=== PATIENT | female | born 1935 | race Caucasian/White ===

== ENCOUNTER 2017-01-22 09:17 | Emergency (ER) | payer OTHER ==
[~2017-01-22 09:17] MED LIST: CARBIDOPA/LEVOD1 TA4 PO; ESCITALOPRAM OXA5 MG PO; FERROUS SULFAT324 M1 PO; LIPITOR80 MG PO; PLAVIX75 MG PO
--- NOTE | 2017-01-22 11:34 | ED NURSING NOTES ---
Clinical Report - Nurses [facility] [address] [place] [address] 01/22/2017 9:18 Patient: PHONG ADEN TRIAGE Triage time 09:33. Acuity: LEVEL 3. Chief Complaint: WEAKNESS. Alert. LAUREN COMA SCORE: [place] Coma Scale: 15- eyes open spontaneously (4); best verbal response- oriented x 4 (5); best motor response- obeys commands (6). --09:38 Vane Rudolph R.N. 09:33 01/22/17. BP: 126/65. HR: 81. RR: 16. O2 saturation: 100% on room air. Temp: 97.7 F (oral). Pain level now: 0/10. --09:38 Vane Rudolph R.N. Weight: 50.3 kg stated. Height/Length: 66 inches Per Patient. BMI: 17.9. --09:36 Vane Rudolph R.N. Medications Carbidopa-Levodopa Oral 25/100 mg, 3x a day. Clopidogrel Bisulfate Oral 75 mg, daily. Escitalopram Oxalate Oral 10 mg, daily. --09:35 Vane Rudolph R.N. Medication/allergy information source: the patient's family. --09:38 Vane Rudolph R.N. Allergies No Known Drug Allergy. --09:35 Vane Rudolph R.N. History Arrived by private vehicle. Historian: patient and family. Accompanied by family. Primary physician ([facility]). This started last night. ( daughter states pt was very tired last night, got up this morning and just didn't feel right, pt c/o confusion). SOCIAL HX: Smoker- current status unknown (no). No alcohol use or drug use. LEARNING NEEDS ASSESSMENT: The learning needs assessment revealed no barriers. FALL RISK ASSESSMENT: Fall risk assessment completed. Risk factors identified include patient age greater than 65 years and impairment of mobility. Fall interventions initiated. Patient placed on stretcher. Side rails up x1. Brakes on Bed in low position. Family at bedside. FUNCTIONAL ASSESSMENT: Functional assessment performed: requires assistance with the activities of daily living; mobility impairment present- this mobility impairment is an ongoing problem. --09:38 Vane Rudolph R.N. PROBLEMS: Anemia. Renal Failure. Hypotension. Diarrhea. CVA - Cerebrovascular Accident. Strokes x 3. Nephropathy. --09:36 Vane Rudolph R.N. TIA - Transient Ischemic Attack [RuleOut]. Changed Mental Status [RuleOut]. --09:36 Vane Rudolph R.N. ADDITIONAL SURGERIES: Cabg x 2. --09:36 Vane Rudolph R.N. Assessment GENERAL / NEURO / PSYCH: Alert. Appears in no acute distress. Patient appears calm and cooperative. ( oriented to person). RESPIRATORY: Respirations not labored. SKIN: Skin is warm and dry. --09:38 Vane Rudolph R.N. Interventions ID band on patient. To treatment room. --09:38 Vane Rudolph R.N. PHYSICAL ASSESSMENT 09:35. To room via wheelchair. Patient gowned. GENERAL / NEURO / PSYCH: Awake. Alert. Appears in no acute distress. Speech normal. RESPIRATORY: Respirations not labored. CVS: Cardiac rhythm: sinus rhythm. SKIN: Skin is warm and dry. --10:26 Vane Rudolph R.N. NURSING PROGRESS NOTES 10:01/22/2017 Site #1 started via IV in the right upper arm with an 22g angiocath, with aseptic technique and good blood return; two attempts. Blood drawn: rainbow set. Labeled in the presence of the patient and sent to the lab. Saline lock flushed with 10 mL saline. --10:09 Vane Rudolph R.N. EKG time: (9:49 AM). EKG was performed by a tech and shown to the ED physician. --10:19 Zane Buck 09:35. hyperbaric nurse, pulse oximeter and NIBP monitor placed on patient. Patient gowned. Head of bed elevated. Call light placed in reach. Side rails up x 2. Bed placed in lowest position. Brakes of bed on. --10:27 Vane Rudolph R.N. 10:27 01/22/17. Patient ID band checked. Catheterized urine collected; sample sent to lab. Specimen labeled in the presence of the patient (with femcath kit and assist of EDT). --10:27 Vane Rudolph R.N. 11:21 01/22/2017 Started 1 gm of Ceftriaxone IVPB in bag #1 50 mL; at 200 mL/hr over 30 minute(s) via site #1; Allergies verified and confirmed 5 rights. IV patency established. IV site checked: no pain, redness, or swelling. IV flushed thoroughly pre- and post-medication administration. Completed per protocol. --11:21 Charbel Pace R.N. DISPOSITION / DISCHARGE 11:43 01/22/17. BP: 114/71. HR: 66. RR: 18. O2 saturation: 98%. Temp: 98.5 F. Pain level now 0/10. --11:44 Charbel Pace R.N. No learning barriers present. Discharge instructions provided and reviewed with the patient. Reviewed warnings. Reviewed medication(s). Treatments reviewed. Reviewed referrals. Patient verbalized understanding. Written instructions provided in Turkish. --11:46 Charbel Pace R.N. The patient was discharged by the physician. She was discharged home and accompanied by family. She left the Emergency Department in a wheelchair and via private vehicle. Family member driving. --11:47 Charbel Pace R.N. Departure time: 1150. --11:47 Charbel Pace R.N. Locked/Released at 01/22/2017 14:06 by Charbel Pace R.N.
--- NOTE | 2017-01-22 11:34 | ED CLINICAL REPORT ---
Clinical Report - Physicians/Mid Levels [facility] [address] [place] [address] 01/22/2017 9:18 Patient: PHONG ADEN Time Seen: 09:35; initial patient contact. Arrived- By private vehicle. Historian- patient and family. HISTORY OF PRESENT ILLNESS Chief Complaint: WEAKNESS. The patient has had weakness. No numbness, tingling, impaired speech or swallowing or visual disturbance. No recent fall. No difficulty walking. This started yesterday, patient was last known well (yesterday) and is still present (persistent). It was gradual in onset. At its maximum deficit described as mild. When seen in the E.D., deficit described as mild. No dizziness, seizure or blackouts. She has had altered mental status (Mild). She is described as having decreased responsiveness and has had trouble concentrating. Usually is alert and oriented X3 and has normal mobility. Similar symptoms previously: None. Recent medical care: Not recently seen/assessed. REVIEW OF SYSTEMS No fever, headache, head injury, chest pain or difficulty breathing. All systems otherwise negative, except as recorded above. PAST HISTORY ( Anemia. Renal Failure. Hypotension. Diarrhea. CVA - Cerebrovascular Accident. Strokes x 3. Nephropathy. TIA - Transient Ischemic Attack Changed Mental Status SURGERIES: Cabg x 2.). SOCIAL HISTORY Never smoker. No alcohol use or drug use. ADDITIONAL NOTES The nursing notes have been reviewed with agreement regarding the chief complaint, PMH and patient medications and allergies. PHYSICAL EXAM Vital Signs: 01/22/2017 09:33 BP: 126/65. HR: 81. RR: 16. O2 saturation: 100%. Temp: 97.7 F. Pain level now: 0/10. Have been reviewed as normal. Appearance: Alert. No acute distress. Head: Head atraumatic. Eyes: Pupils equal, round and reactive to light. ENT: Airway intact. Pharynx normal. Neck: Normal inspection. CVS: Normal heart rate and rhythm. Heart sounds normal. Respiratory: No respiratory distress. Breath sounds normal. Back: Normal inspection. No CVA tenderness. Skin: Skin warm and dry. Normal skin color. No rash. Extremities: No lower extremity edema. Neuro: Alert. Oriented X 3. Mood/affect normal. Speech normal. Cranial nerves normal (as tested). No cerebellar findings. No motor deficit. No sensory deficit. Reflexes normal. LABS, X-RAYS, AND EKG Laboratory Tests: UA-Culture if indicated: (KIRSTIE: 01/22/2017 10:20) ( [facility] 01/22/2017 10:42) Final results Test Result Flag Units (Reference) URINE COLOR YELLOW URINE APPEARANCE SL CLOUDY URINE GLUCOSE NEGATIVE (NEGATIVE) URINE BILIRUBIN NEGATIVE (NEGATIVE) URINE KETONE NEGATIVE (NEGATIVE) URINE SPECIFIC GRAVITY 1.020 (1.010-1.030) URINE PH 5.5 (5.0-8.0) URINE PROTEIN NEGATIVE (NEGATIVE) URINE UROBILINOGEN 0.2 EU/dL (0.2-1.0) URINE NITRITE POSITIVE (NEGATIVE) URINE BLOOD 2+ (NEGATIVE) URINE LEUK ESTERASE NEGATIVE (NEGATIVE) URINE RBC 3-5 rbc/hpf (0-1) URINE WBC NONE SEEN wbc/hpf (0-1) URINE EPITHELIAL CELLS RARE EPI/hpf (0-5) URINE BACTERIA MANY (4+) (NONE SEEN) URINE COMMENT CULTURE INDICATED URINE CULTURES ARE SET-UP BASED ON THE FOLLOWING CRITERIA:POSITIVE NITRITEPOSITIVE LEUKOCYTE ESTERASEGREATER THAN 10 WHITE BLOOD CELLSMODERATE (2+) OR GREATER BACTERIA CBC w Diff: (KIRSTIE: 01/22/2017 10:00) ( [facility] 01/22/2017 10:16) Final results Test Result Flag Units (Reference) WHITE BLOOD COUNT 6.2 K/uL (4.5-11.5) RED BLOOD COUNT 3.45 L M/uL (4.00-5.20) HEMOGLOBIN 10.2 L gm/dL (12.0-16.0) HEMATOCRIT 30.7 L % (36.0-46.0) MEAN CELL VOLUME 89 fL (80-100) MEAN CORPUSCULAR HGB 30 pg (26-34) MEAN CORPUSCULAR HGB CONC 33 g/dL (31-37) RED CELL DISTRIBUTION WIDTH 13.5 % (11.6-14.8) PLATELET COUNT 211 K/uL (150-400) NEUTROPHIL % 65.5 % (50-75) LYMPH % 24.1 L % (25-40) MONO % 7.9 % (3-14) EOSINOPHIL % 2.1 % (0-4) BASOPHIL % 0.4 % (0-2) Urine Drug Screen: (KIRSTIE: 01/22/2017 10:20) ( [facility] 01/22/2017 10:48) Final results Test Result Flag Units (Reference) AMPHETAMINE/METHAMPHETAMINE NEGATIVE (NEGATIVE) BARBITURATE NEGATIVE (NEGATIVE) BENZODIAZEPINE NEGATIVE (NEGATIVE) CANNABINOID NEGATIVE (NEGATIVE) COCAINE NEGATIVE (NEGATIVE) ECSTASY NEGATIVE (NEGATIVE) METHADONE NEGATIVE (NEGATIVE) OPIATE NEGATIVE (NEGATIVE) The urine drug screen is a qualitative screening test fordrug overdose and abuse. All screen results should beconsidered as presumptive.Drugs screened for are as follows:BenzodiazepinesCocaineAmphetamines/MetamphetaminesTHC (Tetrahydrocannabinol)OpiatesBarbituratesEcstasyMethadonePositive results are unconfirmed. For confirmation, notifythe lab for the specimen to be sent to the reference lab.All confirmations must be performed by a differentmethodology.The ingestion of natural herbal and plant productscontaining Ephedra/Ephedra metabolites can produce in urineone or more substances capable of cross reacting withamphetamine/methamphetamine immunoassays. These testsprovide a preliminary result only. A more specificalternative chemical method must be used to obtain aconfirmed analytical result. CMP: (KIRSTIE: 01/22/2017 10:00) ( [facility] 01/22/2017 10:29) Final results Test Result Flag Units (Reference) GLUCOSE 147 H mg/dL (70-110) BUN 31 H mg/dL (7-18) CREATININE 1.5 H mg/dL (0.6-1.3) Estimated GFR 35.25 mL/min Estimated GFR- 42.72 mL/min Note: Persistent reduction over 3 months in eGFR<60 mL/min/1.73 m2 defines CKD. Patients with eGFR values>=60 mL/min/1.73 m2 may also have CKD if evidence ofpersistent proteinuria. Additional information may be foundat www.kidney.org. SODIUM 145 mmol/L (136-145) POTASSIUM 3.6 mmol/L (3.5-5.1) CHLORIDE 108 H mmol/L (98-107) CARBON DIOXIDE 28 mmol/L (21-32) CALCIUM 8.5 mg/dL (8.5-10.1) TOTAL PROTEIN 6.6 g/dL (6.4-8.2) ALBUMIN 3.1 L g/dL (3.3-5.0) BILIRUBIN, TOTAL 0.5 mg/dL (0.0-1.0) ALKALINE PHOSPHATASE 48 U/L (46-116) AST (SGOT) 17 U/L (15-37) ALT (SGPT) 10 L U/L (12-78) . PROGRESS AND PROCEDURES Disposition: Discharged home in good condition. Condition: good. CLINICAL IMPRESSION Acute urinary tract infection with cystitis. No pyelonephritis. INSTRUCTIONS Your Current Medications: CONTINUE TAKING THE FOLLOWING MEDICATIONS: Carbidopa-Levodopa Oral : 25/100 mg 3x a day. Clopidogrel Bisulfate Oral : 75 mg daily. Escitalopram Oxalate Oral : 10 mg daily. Prescription Medications: Cipro 500 mg: take 1 tab orally every 12 hours for 3 days. No refills. Substitution is permissible. Follow-up: Follow up with your doctor in about two days. Call for an appointment. Screening today revealed the patient's blood pressure to be in the pre-hypertensive range. The patient should follow up with a primary care provider for blood pressure management. (Electronically signed by Cr Shultz Dr. 01/22/2017 11:37)
--- NOTE | 2017-01-22 11:34 | ED NURSING NOTES ---
Clinical Report - Nurses [facility] [address] [place] [address] 01/22/2017 9:18 Patient: PHONG ADEN TRIAGE Triage time 09:33. Acuity: LEVEL 3. Chief Complaint: WEAKNESS. Alert. LAUREN COMA SCORE: [place] Coma Scale: 15- eyes open spontaneously (4); best verbal response- oriented x 4 (5); best motor response- obeys commands (6). --09:38 Vane Rudolph R.N. 09:33 01/22/17. BP: 126/65. HR: 81. RR: 16. O2 saturation: 100% on room air. Temp: 97.7 F (oral). Pain level now: 0/10. --09:38 Vane Rudolph R.N. Weight: 50.3 kg stated. Height/Length: 66 inches Per Patient. BMI: 17.9. --09:36 Vane Rudolph R.N. Medications Carbidopa-Levodopa Oral 25/100 mg, 3x a day. Clopidogrel Bisulfate Oral 75 mg, daily. Escitalopram Oxalate Oral 10 mg, daily. --09:35 Vane Rudolph R.N. Medication/allergy information source: the patient's family. --09:38 Vane Rudolph R.N. Allergies No Known Drug Allergy. --09:35 Vane Rudolph R.N. History Arrived by private vehicle. Historian: patient and family. Accompanied by family. Primary physician ([facility]). This started last night. ( daughter states pt was very tired last night, got up this morning and just didn't feel right, pt c/o confusion). SOCIAL HX: Smoker- current status unknown (no). No alcohol use or drug use. LEARNING NEEDS ASSESSMENT: The learning needs assessment revealed no barriers. FALL RISK ASSESSMENT: Fall risk assessment completed. Risk factors identified include patient age greater than 65 years and impairment of mobility. Fall interventions initiated. Patient placed on stretcher. Side rails up x1. Brakes on Bed in low position. Family at bedside. FUNCTIONAL ASSESSMENT: Functional assessment performed: requires assistance with the activities of daily living; mobility impairment present- this mobility impairment is an ongoing problem. --09:38 Vane Rudolph R.N. PROBLEMS: Anemia. Renal Failure. Hypotension. Diarrhea. CVA - Cerebrovascular Accident. Strokes x 3. Nephropathy. --09:36 Vane Rudolph R.N. TIA - Transient Ischemic Attack [RuleOut]. Changed Mental Status [RuleOut]. --09:36 Vane Rudolph R.N. ADDITIONAL SURGERIES: Cabg x 2. --09:36 Vane Rudolph R.N. Assessment GENERAL / NEURO / PSYCH: Alert. Appears in no acute distress. Patient appears calm and cooperative. ( oriented to person). RESPIRATORY: Respirations not labored. SKIN: Skin is warm and dry. --09:38 Vane Rudolph R.N. Interventions ID band on patient. To treatment room. --09:38 Vane Rudolph R.N. PHYSICAL ASSESSMENT 09:35. To room via wheelchair. Patient gowned. GENERAL / NEURO / PSYCH: Awake. Alert. Appears in no acute distress. Speech normal. RESPIRATORY: Respirations not labored. CVS: Cardiac rhythm: sinus rhythm. SKIN: Skin is warm and dry. --10:26 Vane Rudolph R.N. NURSING PROGRESS NOTES 10:01/22/2017 Site #1 started via IV in the right upper arm with an 22g angiocath, with aseptic technique and good blood return; two attempts. Blood drawn: rainbow set. Labeled in the presence of the patient and sent to the lab. Saline lock flushed with 10 mL saline. --10:09 Vane Rudolph R.N. EKG time: (9:49 AM). EKG was performed by a tech and shown to the ED physician. --10:19 Zane Buck 09:35. teletype operator, pulse oximeter and NIBP monitor placed on patient. Patient gowned. Head of bed elevated. Call light placed in reach. Side rails up x 2. Bed placed in lowest position. Brakes of bed on. --10:27 Vane Rudolph R.N. 10:27 01/22/17. Patient ID band checked. Catheterized urine collected; sample sent to lab. Specimen labeled in the presence of the patient (with femcath kit and assist of EDT). --10:27 Vane Rudolph R.N. 11:21 01/22/2017 Started 1 gm of Ceftriaxone IVPB in bag #1 50 mL; at 200 mL/hr over 30 minute(s) via site #1; Allergies verified and confirmed 5 rights. IV patency established. IV site checked: no pain, redness, or swelling. IV flushed thoroughly pre- and post-medication administration. Completed per protocol. --11:21 Charbel Pace R.N. DISPOSITION / DISCHARGE 11:43 01/22/17. BP: 114/71. HR: 66. RR: 18. O2 saturation: 98%. Temp: 98.5 F. Pain level now 0/10. --11:44 Charbel Pace R.N. No learning barriers present. Discharge instructions provided and reviewed with the patient. Reviewed warnings. Reviewed medication(s). Treatments reviewed. Reviewed referrals. Patient verbalized understanding. Written instructions provided in Moldovan. --11:46 Charbel Pace R.N. The patient was discharged by the physician. She was discharged home and accompanied by family. She left the Emergency Department in a wheelchair and via private vehicle. Family member driving. --11:47 Charbel Pace R.N. Departure time: 1150. --11:47 Charbel Pace R.N. Locked/Released at 01/22/2017 14:06 by Charbel Pace R.N.
--- NOTE | 2017-01-22 11:35 | ED ORDER SUMMARY ---
..... Patient: PHONG ADEN OrderSheet [facility] VisitID: [id number] [address] [place] [address] 81y, F Registration Date/Time: 01/22/2017 ORDER SHEET Weight: 50.3 kg (stated) Allergies: No Known Drug Allergy GENERAL ORDERS: CBC w Diff Urgent (09:54 01/22/2017 Avis Padgett) (Ack 10:03 Ping) (10:09 [place] R.N.) CMP Urgent (:01/22/2017 Avis Padgett) (Ack 10:03 Ping) (10:09 [place] R.N.) UA-Culture if indicated Urgent (01/22/2017 Avis Padgett) (Ack 10:03 Ping) (11:18 [place] R.N.) Urine Drug Screen Urgent (:01/22/2017 Avis Padgett) (Ack 10:03 Ping) (11:18 [place] R.N.) MEDICATION ORDERS: IV FLUIDS: IV Saline Lock (:01/22/2017 Avis Padgett) (10:09 [place] R.N.) Ceftriaxone IV 1 gm/50mL (NOW) (11:01 01/22/2017 Avis Padgett) (11:21 Delores Barrett.Tom) ORDER SHEET NOTES: [Electronically signed by Cr Shultz Dr. (11:37 01/22/2017)] [Electronically signed by Charbel Pace R.N. (14:06 01/22/2017)] [Electronically locked/signed by Charbel Pace R.N. (14:06 01/22/2017)]
--- NOTE | 2017-01-22 11:35 | ED ORDER SUMMARY ---
..... Patient: PHONG ADEN OrderSheet [facility] VisitID: [id number] [address] [place] [address] 81y, F Registration Date/Time: 01/22/2017 ORDER SHEET Weight: 50.3 kg (stated) Allergies: No Known Drug Allergy GENERAL ORDERS: CBC w Diff Urgent (09:54 01/22/2017 Avis Padgett) (Ack 10:03 Ping) (10:09 [place] R.N.) CMP Urgent (:01/22/2017 Avis Padgett) (Ack 10:03 Ping) (10:09 [place] R.N.) UA-Culture if indicated Urgent (01/22/2017 Avis Padgett) (Ack 10:03 Ping) (11:18 [place] R.N.) Urine Drug Screen Urgent (:01/22/2017 Avis Padgett) (Ack 10:03 Ping) (11:18 [place] R.N.) MEDICATION ORDERS: IV FLUIDS: IV Saline Lock (:01/22/2017 Avis Padgett) (10:09 [place] R.N.) Ceftriaxone IV 1 gm/50mL (NOW) (11:01 01/22/2017 Avis Padgett) (11:21 Delores Barrett.Tom) ORDER SHEET NOTES: [Electronically signed by Cr Shultz Dr. (11:37 01/22/2017)] [Electronically signed by Charbel Pace R.N. (14:06 01/22/2017)] [Electronically locked/signed by Charbel Pace R.N. (14:06 01/22/2017)]
--- NOTE | 2017-01-22 14:06 | ED DISCHARGE INSTRUCTIONS ---
Patient: PHONG ADEN General Instructions [facility] VisitID: [id number] [place] [address] 81y, F Registration Date/Time: 01/22/2017 Acute urinary tract infection with cystitis. No pyelonephritis. INSTRUCTIONS Your Current Medications: CONTINUE TAKING THE FOLLOWING MEDICATIONS: Carbidopa-Levodopa Oral : 25/100 mg 3x a day. Clopidogrel Bisulfate Oral : 75 mg daily. Escitalopram Oxalate Oral : 10 mg daily. Prescription Medications: Cipro 500 mg: take 1 tab orally every 12 hours for 3 days. No refills. Substitution is permissible. Follow-up: Follow up with your doctor in about two days. Call for an appointment. Screening today revealed the patient's blood pressure to be in the pre-hypertensive range. The patient should follow up with a primary care provider for blood pressure management. ADDITIONAL INFORMATION Bladder Infection,Female (Adult) A bladder infection ("cystitis" or "UTI") usually causes a constant urge to urinate and a burning when passing urine. Urine may be cloudy, smelly or dark. There may be pain in the lower abdomen. A bladder infection occurs when bacteria from the vaginal area enter the bladder opening (urethra). This can occur from sexual intercourse, wearing tight clothing, dehydration and other factors. Home Care: Drink lots of fluids (at least 6-8 glasses a day, unless you must restrict fluids for other medical reasons). This will force the medicine into your urinary system and flush the bacteria out of your body. Avoid sexual intercourse until your symptoms are gone. Avoid caffeine, alcohol and spicy foods. These can irritate the bladder. A bladder infection is treated with antibiotics. You may also be given Pyridium (generic = phenazopyridine) to reduce the burning sensation. This medicine will cause your urine to become a bright orange color. The orange urine may stain clothing. You may wear a pad or panty-liner to protect clothing. Preventing Future Infections: Always wipe from front to back after a bowel movement. Keep the genital area clean and dry. Drink plenty of fluids each day to avoid dehydration. Both sexual partners should wash before intercourse. Urinate right after intercourse to flush out the bladder. Wear cotton underwear and cotton-lined panty hose; avoid tight-fitting pants. If you are on control pills and are having frequent bladder infections, discuss with your doctor. Follow Up: Return to this facility or see your doctor if ALL symptoms are not gone after three days of treatment. Get Prompt Medical Attention if any of the following occur: Fever of 100.4F (38C) or higher, or as directed by your healthcare provider No improvement by the third day of treatment Increasing back or abdominal pain Repeated vomiting; unable to keep medicine down Weakness, dizziness or fainting Vaginal discharge Pain, redness or swelling in the labia (outer vaginal area) Ciprofloxacin Hydrochloride Oral tablet What is this medicine? CIPROFLOXACIN (sip liang FLOX a sin) is a quinolone antibiotic. It is used to treat certain kinds of bacterial infections. It will not work for colds, flu, or other viral infections. How should I use this medicine? Take this medicine by mouth with a glass of water. Follow the directions on the prescription label. Take your medicine at regular intervals. Do not take your medicine more often than directed. Take all of your medicine as directed even if you think your are better. Do not skip doses or stop your medicine early. You can take this medicine with food or on an empty stomach. It can be taken with a meal that contains dairy or calcium, but do not take it alone with a dairy product, like milk or yogurt or calcium-fortified juice. A special MedGuide will be given to you by the pharmacist with each prescription and refill. Be sure to read this information carefully each time. Talk to your locomotive engineer diesel regarding the use of this medicine in children. Special care may be needed. What side effects may I notice from receiving this medicine? Side effects that you should report to your doctor or health adult care provider as soon as possible: - allergic reactions like skin rash, itching or hives, swelling of the face, lips, or tongue - breathing problems - confusion, nightmares or hallucinations - feeling faint or lightheaded, falls - irregular heartbeat - joint, muscle or tendon pain or swelling - pain or trouble passing urine -persistent headache with or without blurred vision - redness, blistering, peeling or loosening of the skin, including inside the mouth - seizure - unusual pain, numbness, tingling, or weakness Side effects that usually do not require medical attention (report to your doctor or health adult care provider if they continue or are bothersome): - diarrhea - nausea or stomach upset - white patches or sores in the mouth What may interact with this medicine? Do not take this medicine with any of the following medications: cisapride droperidol terfenadine tizanidine This medicine may also interact with the following medications: antacids caffeine cyclosporin didanosine (ddI) buffered tablets or powder medicines for diabetes medicines for inflammation like ibuprofen, naproxen methotrexate multivitamins omeprazole phenytoin probenecid sucralfate theophylline warfarin What if I miss a dose? If you miss a dose, take it as soon as you can. If it is almost time for your next dose, take only that dose. Do not take double or extra doses. Where should I keep my medicine? Keep out of the reach of children. Store at room temperature below 30 degrees C (86 degrees F). Keep container tightly closed. Throw away any unused medicine after the expiration date. What should I tell my health care provider before I take this medicine? They need to know if you have any of these conditions: -bone problems -cerebral disease -joint problems -irregular heartbeat -kidney disease -liver disease -myasthenia gravis -seizure disorder -tendon problems -an unusual or allergic reaction to ciprofloxacin, other antibiotics or medicines, foods, dyes, or preservatives - or trying to get -breast-feeding What should I watch for while using this medicine? Tell your doctor or health adult care provider if your symptoms do not improve. Do not treat diarrhea with over the counter products. Contact your doctor if you have diarrhea that lasts more than 2 days or if it is severe and watery. You may get drowsy or dizzy. Do not drive, use machinery, or do anything that needs mental alertness until you know how this medicine affects you. Do not stand or sit up quickly, especially if you are an older patient. This reduces the risk of dizzy or fainting spells. This medicine can make you more sensitive to the sun. Keep out of the sun. If you cannot avoid being in the sun, wear protective clothing and use sunscreen. Do not use sun lamps or tanning beds/booths. Avoid antacids, aluminum, calcium, iron, magnesium, and zinc products for 6 hours before and 2 hours after taking a dose of this medicine. You have been given the following additional information: Bladder Infection, Female (Adult) Ciprofloxacin Hydrochloride Oral tablet (Electronically signed by Cr Shultz Dr. 01/22/2017 11:37)
--- NOTE | 2017-01-22 14:06 | ED MAR SUMMARY ---
..... Medication Administration Record [facility] [address] [place] [address] Patient: PHONG ADEN Visit ID: [id number] 81y, F Weight: 50.3 kg Height/Length: 66 in BMI: 17.9 ALLERGIES: No Known Drug Allergy Start 11:21 01/22/2017 Charbel Pace R.NAbdullahi Medication Administered: CEFTRIAXONE [IVPB], Dose: 1 gm IVPB over 30 minute(s), Rate: 200 mL/hr, Dispensed: 50 mL bag, Site: #1 right upper arm. Medication Ordered: Ceftriaxone IV 1 gm/50mL (NOW).
--- NOTE | 2017-01-22 14:06 | ED MED RECONCILIATION SUMMARY ---
Patient: PHONG ADEN Medication Reconciliation Report [facility] VisitID: [id number] [address] [place] [address] 81y, F Registration Date/Time: 01/22/2017 Weight: 50.3 kg Height/Length: 66 in. BMI: 17.9 ALLERGIES: No Known Drug Allergy The patient's Home Medications are listed below: CONTINUE TAKING THE FOLLOWING MEDICATIONS: Carbidopa-Levodopa Oral 25/100 mg, 3x a day Clopidogrel Bisulfate Oral 75 mg, daily Escitalopram Oxalate Oral 10 mg, daily The source(s) of the original Home Medication information: patient's family member The following Medications were given to the patient in the Emergency Department: Ceftriaxone [IVPB] IVPB bolus 0, then 1 gm 200 mL/hr, administered: 01/22/2017 11:21:00 AM The following Medications were prescribed to the patient: Cipro 500 mg: take 1 tab orally every 12 hours for 3 days. No refills. Substitution is permissible. -- Cr Shultz Dr.
--- NOTE | 2017-01-22 14:06 | ED MED RECONCILIATION SUMMARY ---
Patient: PHONG ADEN Medication Reconciliation Report [facility] VisitID: [id number] [address] [place] [address] 81y, F Registration Date/Time: 01/22/2017 Weight: 50.3 kg Height/Length: 66 in. BMI: 17.9 ALLERGIES: No Known Drug Allergy The patient's Home Medications are listed below: CONTINUE TAKING THE FOLLOWING MEDICATIONS: Carbidopa-Levodopa Oral 25/100 mg, 3x a day Clopidogrel Bisulfate Oral 75 mg, daily Escitalopram Oxalate Oral 10 mg, daily The source(s) of the original Home Medication information: patient's family member The following Medications were given to the patient in the Emergency Department: Ceftriaxone [IVPB] IVPB bolus 0, then 1 gm 200 mL/hr, administered: 01/22/2017 11:21:00 AM The following Medications were prescribed to the patient: Cipro 500 mg: take 1 tab orally every 12 hours for 3 days. No refills. Substitution is permissible. -- Cr Shultz Dr.
--- NOTE | 2017-01-22 14:06 | ED MAR SUMMARY ---
..... Medication Administration Record [facility] [address] [place] [address] Patient: PHONG ADEN Visit ID: [id number] 81y, F Weight: 50.3 kg Height/Length: 66 in BMI: 17.9 ALLERGIES: No Known Drug Allergy Start 11:21 01/22/2017 Charbel Pace R.NAbdullahi Medication Administered: CEFTRIAXONE [IVPB], Dose: 1 gm IVPB over 30 minute(s), Rate: 200 mL/hr, Dispensed: 50 mL bag, Site: #1 right upper arm. Medication Ordered: Ceftriaxone IV 1 gm/50mL (NOW).
== END 2017-01-22 11:50 | disposition home or self-care (01) ==
LOC: ED SRH 09:17
DX: N30.00 Acute cystitis without hematuria (principal); I95.9 Hypotension, unspecified; Z86.73 Personal history of transient ischemic attack (TIA), and cerebral infarction without residual deficits; Z79.899 Other long term (current) drug therapy
CPT/HCPCS: 90004; 90100; 90148; 90469; 92760; 92761; 92762; 92763; 92764; 92765; 92766; 92767; 95059

== ENCOUNTER 2017-03-31 09:35 | Emergency (ER) | payer OTHER ==
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
--- NOTE | 2017-03-31 11:21 | ED NURSING NOTES ---
Clinical Report - Nurses [facility] [address] [place] [address] 03/31/2017 9:36 Patient: PHONG ADEN TRIAGE Triage time 09:46. Acuity: LEVEL 4. Chief Complaint: ALTERED MENTAL STATUS and CONFUSED and (Pt has history of dementia, but this week, daughter states it's worse, lives with her and she was up all night saying she was in an accident and is bleeding). Alert. LAUREN COMA SCORE: Eckerty Coma Scale: 14- eyes open spontaneously (4); best verbal response- disoriented (4); best motor response- obeys commands (6). --09:50 Collette Cerna R.N. 09:45 03/31/17. BP: 140/74. HR: 80. RR: 18. O2 saturation: 100%. Temp: 98.5 F. Pain level now: 0/10. --09:50 Collette Cerna R.N. Weight: 50.3 kg stated. Height/Length: 66 inches Per Patient. BMI: 17.9. --09:47 Collette Cerna R.N. Medications Carbidopa-Levodopa Oral 25/100 mg, 3x a day. Clopidogrel Bisulfate Oral 75 mg, daily. Escitalopram Oxalate Oral 10 mg, daily. --09:47 Collette Cerna R.N. Allergies No Known Drug Allergy. --09:47 Collette Cerna R.N. History Arrived by private vehicle. Historian: family. Accompanied by daughter. Primary physician (unknown, but is next door). This started last night. SOCIAL HX: Never smoker. No alcohol use or drug use. FALL RISK ASSESSMENT: Fall risk assessment completed. Risk factors identified include patient history of fall. --09:50 Collette Cerna R.N. PROBLEMS: Tremors. UTI - Urinary Tract Infection. Anemia. Renal Failure. Hypotension. Diarrhea. CVA - Cerebrovascular Accident. Nephropathy. --09:48 Collette Cerna R.N. The following entry was modified by Sofi Angela MD, 10:35 Reason - duplicate <<STRICKEN ENTRY-- Strokes x 3. --10:35 Sofi Angela MD --END STRIKE>>. ADDITIONAL SURGERIES: Cabg x 2. --09:48 Collette Cerna R.N. Interventions ID band on patient. To room. --09:50 Collette Cerna R.N. PHYSICAL ASSESSMENT 09:51 03/31/17. GENERAL / NEURO / PSYCH: Alert. The patient is disoriented. --09:51 Collette Cerna R.N. NURSING PROGRESS NOTES 09:51 03/31/17. Patient identifiers checked. Call light placed in reach. Bed placed in lowest position. Patient ready for evaluation- chart flagged. --09:51 Collette Cerna R.N. 10:13 03/31/2017 Site #1 started via IV in the right forearm with an 20g angiocath, with aseptic technique and good blood return; one attempt. Blood drawn: rainbow set. Labeled in the presence of the patient and sent to the lab. Saline lock flushed with 10 mL saline. --10:23 Collette Cerna R.N. Patient ID band checked for patient name and birthdate: family confirmed. Catheterized urine collected with return of yellow-colored clear urine; sample sent to lab for urinalysis and culture. Specimen labeled in the presence of the patient. --10:24 Collette Cerna R.N. 10:51 03/31/2017 Bactrim DS (Sulfamethoxazole-TMP DS) PO 2 tab given. Allergies verified and confirmed 5 rights. --10:51 Collette Cerna R.N. 11:00 03/31/17. Assisted patient to bathroom, to wheelchair and back to bed (2 person assist to void). --11:00 Collette Cerna R.N. DISPOSITION / DISCHARGE 11:44 03/31/17. BP: 128/73. HR: 71. RR: 18. O2 saturation: 100%. Temp: 98 F. Pain level now: 0/10. --11:44 Collette Cerna R.N. 11:45 03/31/17. Condition at departure: unchanged. No learning barriers present. Discharge instructions provided and reviewed with the family. Reviewed medication(s) information. Prescription(s) given to the steel layout worker. Treatments reviewed (since pt doesn't like cranberry juice, suggested to daughter to maybe try cranberry tablets). Reviewed referral to family practice for followup. The patient was discharged home and accompanied by family. She left the Emergency Department in a wheelchair and via private vehicle. Family member driving. --11:45 Collette Ceran R.N. Locked/Released at 03/31/2017 12:46 by Collette Cerna R.N.
--- NOTE | 2017-03-31 11:21 | ED ORDER SUMMARY ---
..... Patient: PHONG ADEN OrderSheet [facility] VisitID: [id number] [place] [address] 81y, F Registration Date/Time: 03/31/2017 ORDER SHEET Weight: 50.3 kg (stated) Allergies: No Known Drug Allergy GENERAL ORDERS: CT Head wo Cont Urgent (10:20 03/31/2017 Fab CURRIE) (Ack 10:23 PWeiler ER Tech1) (Cancelled: Other10:41 Fab CURRIE) CBC w Diff Urgent (10:20 03/31/2017 Fab CURRIE) (Ack 10:22 PWeiler ER Tech1) (10:24 LSullivan R.N.) CMP Urgent (10:20 03/31/2017 Fab CURRIE) (Ack 10:22 PWeiler ER Tech1) (10:24 LSullivan R.N.) UA-Culture if indicated Urgent (10:20 03/31/2017 Fab CURRIE) (Ack 10:22 PWeiler ER Tech1) (10:24 LSullivan R.N.) MEDICATION ORDERS: Bactrim DS PO (Tablet 800-160 mg) 2 tabs (NOW) (10:40 03/31/2017 Fab CURRIE) (10:51 LSullivan R.N.) IV FLUIDS: IV Saline Lock (10:20 03/31/2017 Fab CURRIE) (10:23 LSullivan R.N.) ORDER SHEET NOTES: [Electronically signed by Collette Cerna R.N. (12:46 03/31/2017)] [Electronically signed by Sofi Angela MD (21:45 03/31/2017)] [Electronically locked/signed by Collette Cerna R.N. (12:46 03/31/2017)]
--- NOTE | 2017-03-31 11:21 | ED ORDER SUMMARY ---
..... Patient: PHONG ADEN OrderSheet [facility] VisitID: [id number] [place] [address] 81y, F Registration Date/Time: 03/31/2017 ORDER SHEET Weight: 50.3 kg (stated) Allergies: No Known Drug Allergy GENERAL ORDERS: CT Head wo Cont Urgent (10:20 03/31/2017 Fab CURRIE) (Ack 10:23 PWeiler ER Tech1) (Cancelled: Other10:41 Fab CURRIE) CBC w Diff Urgent (10:20 03/31/2017 Fab CURRIE) (Ack 10:22 PWeiler ER Tech1) (10:24 LSullivan R.N.) CMP Urgent (10:20 03/31/2017 Fab CURRIE) (Ack 10:22 PWeiler ER Tech1) (10:24 LSullivan R.N.) UA-Culture if indicated Urgent (10:20 03/31/2017 Fab CURRIE) (Ack 10:22 PWeiler ER Tech1) (10:24 LSullivan R.N.) MEDICATION ORDERS: Bactrim DS PO (Tablet 800-160 mg) 2 tabs (NOW) (10:40 03/31/2017 Fab CURRIE) (10:51 LSullivan R.N.) IV FLUIDS: IV Saline Lock (10:20 03/31/2017 Fab CURRIE) (10:23 LSullivan R.N.) ORDER SHEET NOTES: [Electronically signed by Collette Cerna R.N. (12:46 03/31/2017)] [Electronically signed by Sofi Angela MD (21:45 03/31/2017)] [Electronically locked/signed by Collette Cerna R.N. (12:46 03/31/2017)]
--- NOTE | 2017-03-31 21:46 | ED DISCHARGE INSTRUCTIONS ---
Patient: PHONG ADEN General Instructions [facility] VisitID: [id number] [place] [address] 81y, F Registration Date/Time: 03/31/2017 Acute mental status change with confusion. Acute urinary tract infection with cystitis. INSTRUCTIONS Warnings: GENERAL WARNINGS: Return or contact your physician immediately if your condition worsens or changes unexpectedly, if not improving as expected, or if other problems arise. Your Current Medications: CONTINUE TAKING THE FOLLOWING MEDICATIONS: Carbidopa-Levodopa Oral : 25/100 mg 3x a day. Clopidogrel Bisulfate Oral : 75 mg daily. Escitalopram Oxalate Oral : 10 mg daily. Prescription Medications: Valium 5 mg: take 1 orally at bedtime as needed for anxiety. Dispense ten (10). No refill. Substitution is permissible. Bactrim DS 800 mg / 160 mg: take 1 tablet orally every 12 hours for 7 days. No refill. Substitution is permissible. Follow-up: Follow up with your doctor in seven days if not better. Understanding of the discharge instructions verbalized by patient and family. ADDITIONAL INFORMATION Bladder Infection,Female (Adult) A bladder infection ("cystitis" or "UTI") usually causes a constant urge to urinate and a burning when passing urine. Urine may be cloudy, smelly or dark. There may be pain in the lower abdomen. A bladder infection occurs when bacteria from the vaginal area enter the bladder opening (urethra). This can occur from sexual intercourse, wearing tight clothing, dehydration and other factors. Home Care: Drink lots of fluids (at least 6-8 glasses a day, unless you must restrict fluids for other medical reasons). This will force the medicine into your urinary system and flush the bacteria out of your body. Avoid sexual intercourse until your symptoms are gone. Avoid caffeine, alcohol and spicy foods. These can irritate the bladder. A bladder infection is treated with antibiotics. You may also be given Pyridium (generic = phenazopyridine) to reduce the burning sensation. This medicine will cause your urine to become a bright orange color. The orange urine may stain clothing. You may wear a pad or panty-liner to protect clothing. Preventing Future Infections: Always wipe from front to back after a bowel movement. Keep the genital area clean and dry. Drink plenty of fluids each day to avoid dehydration. Both sexual partners should wash before intercourse. Urinate right after intercourse to flush out the bladder. Wear cotton underwear and cotton-lined panty hose; avoid tight-fitting pants. If you are on control pills and are having frequent bladder infections, discuss with your doctor. Follow Up: Return to this facility or see your doctor if ALL symptoms are not gone after three days of treatment. Get Prompt Medical Attention if any of the following occur: Fever of 100.4F (38C) or higher, or as directed by your healthcare provider No improvement by the third day of treatment Increasing back or abdominal pain Repeated vomiting; unable to keep medicine down Weakness, dizziness or fainting Vaginal discharge Pain, redness or swelling in the labia (outer vaginal area) Confusion Confusion is a change in a persons ability to think clearly. There may be trouble recognizing familiar people and places, or knowing what day it is. Memory, judgement and decision-making may also be affected. In severe cases there may be limited or no response to verbal commands. Confusion may occur suddenly or develop gradually over time. There are many injuries and medical conditions that can cause this problem. These include brain injury, side effect of medication, intoxication, withdrawal from drugs, infection, stroke, dementia,mental illness and other causes. The exam and testing today did not show the cause of this problem. Further testing will be needed. Specific treatment and hope for recovery depend on the cause of this symptom. Home Care: Be sure someone is with the confused person at all times. He/she should not be left alone or unsupervised. Keep medicines (prescription and [id number]) in a secure place, under the caregivers control. A person with confusion should not be allowed to take their own medicines.This needs to be supervised by the caregiver. Ways to help a person with confusion: Activities:Establish a daily routine. Change can be a source of stress for someone with confusion. Make a time schedule for common tasks such as: bathing, dressing, taking medicines, meals, going for walks, shopping, naps and bed time. Communication:Speak slowly and clearly with a gentle tone of voice. Use short simple words and sentences. Ask one question at a time. Do not interrupt, criticize or argue. Be calm and supportive. Use friendly facial expressions. Use pointing and touching to help communicate. If there has been loss of long-term memory, do not ask questions about past events. This would only cause frustration for the person. Behavioral tips:Use lists, signs, family photos, clocks and calendars as memory aids. Label cabinets and drawers. Try to distract, not confront, the patient. When he/she becomes frustrated or upset, redirect his/her attention to eating or some other activity of interest. Medical-Legal tips: If this proves to be a permanent condition, talk to your doctor and/or career technical supervisor about getting a Power of Compressor Stations Superintendent for health care and for financial decisions. It is best to do this while the person can still sign legal documents and make his/samia own legal decisions. Otherwise, a court order will be required. Follow-Up with the patients doctor or as advised by our staff for further testing. Get Prompt Medical Attention if any of the following occur: Frequent falling Refusal to eat or drink Violent behavior or behavior becomes too difficult to manage at home Increased drowsiness, or failure to respond normally Increasing headache, nausea or repeated vomiting Numbness or weakness of the face, one arm or one leg Slurred speech, trouble speaking, walking or seeing Fainting spell, dizziness or seizure Unexplained fever over 100.4 F (38.0 C) oral You have been given the following additional information: Bladder Infection, Female (Adult) Confusion (Electronically signed by oSfi Angela MD 03/31/2017 21:45)
--- NOTE | 2017-03-31 21:46 | ED MAR SUMMARY ---
..... Medication Administration Record [facility] [address] [place] [place] [address] Patient: PHONG ADEN Visit ID: [id number] 81y, F Weight: 50.3 kg Height/Length: 66 in BMI: 17.9 ALLERGIES: No Known Drug Allergy Given 10:51 03/31/2017 Collette Cerna RJorge Medication Administered: BACTRIM DS [PO] (SULFAMETHOXAZOLE-TMP DS), Dose: 2 tab PO. Medication Ordered: Bactrim DS PO (Tablet 800-160 mg) 2 tabs (NOW).
--- NOTE | 2017-03-31 21:46 | ED MED RECONCILIATION SUMMARY ---
Patient: PHONG ADEN Medication Reconciliation Report [facility] VisitID: [id number] [address] [place] [address] 81y, F Registration Date/Time: 03/31/2017 Weight: 50.3 kg Height/Length: 66 in. BMI: 17.9 ALLERGIES: No Known Drug Allergy The patient's Home Medications are listed below: CONTINUE TAKING THE FOLLOWING MEDICATIONS: Carbidopa-Levodopa Oral 25/100 mg, 3x a day Clopidogrel Bisulfate Oral 75 mg, daily Escitalopram Oxalate Oral 10 mg, daily The source(s) of the original Home Medication information: Not obtained. The following Medications were given to the patient in the Emergency Department: Bactrim DS [PO] PO 2 tab, administered: 03/31/2017 10:51:00 AM The following Medications were prescribed to the patient: Valium 5 mg: take 1 orally at bedtime as needed for anxiety. Dispense ten (10). No refill. Substitution is permissible. -- Sofi Angela MD Bactrim DS 800 mg / 160 mg: take 1 tablet orally every 12 hours for 7 days. No refill. Substitution is permissible. -- oSfi Angela MD
--- NOTE | 2017-03-31 21:46 | ED MED RECONCILIATION SUMMARY ---
Patient: PHONG ADEN Medication Reconciliation Report [facility] VisitID: [id number] [address] [place] [address] 81y, F Registration Date/Time: 03/31/2017 Weight: 50.3 kg Height/Length: 66 in. BMI: 17.9 ALLERGIES: No Known Drug Allergy The patient's Home Medications are listed below: CONTINUE TAKING THE FOLLOWING MEDICATIONS: Carbidopa-Levodopa Oral 25/100 mg, 3x a day Clopidogrel Bisulfate Oral 75 mg, daily Escitalopram Oxalate Oral 10 mg, daily The source(s) of the original Home Medication information: Not obtained. The following Medications were given to the patient in the Emergency Department: Bactrim DS [PO] PO 2 tab, administered: 03/31/2017 10:51:00 AM The following Medications were prescribed to the patient: Valium 5 mg: take 1 orally at bedtime as needed for anxiety. Dispense ten (10). No refill. Substitution is permissible. -- Sofi Angela MD Bactrim DS 800 mg / 160 mg: take 1 tablet orally every 12 hours for 7 days. No refill. Substitution is permissible. -- Sofi Angela MD
--- NOTE | 2017-03-31 21:46 | ED MAR SUMMARY ---
..... Medication Administration Record [facility] [address] [place] [address] Patient: PHONG ADEN Visit ID: [id number] 81y, F Weight: 50.3 kg Height/Length: 66 in BMI: 17.9 ALLERGIES: No Known Drug Allergy Given 10:51 03/31/2017 Collette Cerna RJorge Medication Administered: BACTRIM DS [PO] (SULFAMETHOXAZOLE-TMP DS), Dose: 2 tab PO. Medication Ordered: Bactrim DS PO (Tablet 800-160 mg) 2 tabs (NOW).
== END 2017-03-31 11:45 | disposition home or self-care (01) ==
LOC: ED SRH 09:35
DX: N30.00 Acute cystitis without hematuria (principal); R41.82 Altered mental status, unspecified; Z79.899 Other long term (current) drug therapy
CPT/HCPCS: 81460; 90004; 90100; 90469; 95059

== ENCOUNTER 2017-03-31 18:19 | Emergency (ER) | payer OTHER ==
--- NOTE | 2017-03-31 19:14 | DIAGNOSTIC IMAGING REPORT ---
PROCEDURE: CT HEAD WITHOUT CONTRAST INDICATION: TRAUMA/INJURY TECHNIQUE: Noncontrast axial images with sagittal and coronal reformations. COMPARISON: Head CT 10/16/2016. FINDINGS: Moderate cortical atrophy and severe white matter chronic ischemic changes. Normal ventricular system. Old left basal ganglia infarct. No evidence of acute intracranial process. Extensive calcific atherosclerosis of the vertebral, basilar and internal carotid arteries. Visualized mastoids and sinuses are clear. IMPRESSION: 1. No acute intracranial abnormality 2. Moderate atrophy with severe white matter chronic ischemic changes 3. Old left basal ganglia infarct 4. Findings called to the emergency room at 07:12 p.m., [place] Standard Time
--- NOTE | 2017-03-31 19:38 | ED NURSING NOTES ---
Clinical Report - Nurses [facility] [address] [place] [address] 03/31/2017 18:20 Patient: PHONG ADEN TRIAGE Triage time 18:23. Chief Complaint: FALL while walking (tripped while trying to run). Alert. LAUREN COMA SCORE: Harcourt Coma Scale: 14- eyes open spontaneously (4); best verbal response- disoriented (4); best motor response- obeys commands (6). --18:26 Collette Cerna R.N. ( Weight: 50.3 kg stated. Height/Length: 66 inches Per Patient. BMI: 17.9.). --18:27 Collette Cerna R.N. Acuity: LEVEL 3. --18:33 Collette Cerna R.N. 18:33 03/31/17. BP: 154/75. HR: 75. RR: 18. O2 saturation: 96%. Pain level now: 8/10. --18:33 Collette Cerna R.N. Weight: 50.3 kg stated. Height/Length: 66 inches Per Patient. BMI: 17.9. --21:29 Herminio Nick R.N. Medications Carbidopa-Levodopa Oral 25/100 mg, 3x a day. Clopidogrel Bisulfate Oral 75 mg, daily. Escitalopram Oxalate Oral 10 mg, daily. --18:24 Collette Cerna R.N. Bactrim DS Oral (Tablet 800-160 mg) 1 tablet, 2x a day. --20:55 Herminio Nick R.N. Valium Oral (Tablet 5 mg) 1 tablet, at bedtime as needed. --20:56 Herminio Nick R.N. Allergies No Known Drug Allergy. --18:24 Collette Cerna R.N. History Arrived by EMS. Historian: EMS and family. Location of injuries: left hip. This occurred just prior to arrival and today. --18:26 Collette Cerna R.N. PROBLEMS: Changed Mental Status. Tremors. UTI - Urinary Tract Infection. Anemia. Renal Failure. Hypotension. Diarrhea. CVA - Cerebrovascular Accident. Nephropathy. --18:25 Collette Cerna R.N. ADDITIONAL SURGERIES: Cabg x 2. --18:25 Collette Cerna R.N. Interventions ID band on patient. To room. --18:26 Collette Cerna R.N. ID band on patient. To room. --18:33 Collette Cerna R.N. PHYSICAL ASSESSMENT SKIN: Ecchymosis (left ear and left head). --18:26 Collette Cerna R.N. GENERAL / NEURO / PSYCH: Alert. The patient is disoriented. --18:26 Collette Cerna R.N. NURSING PROGRESS NOTES 18:03/31/17. Reassurance given. Patient identifiers checked. Call light placed in reach. Bed placed in lowest position. Patient ready for evaluation- chart flagged. --18:26 Collette Cerna R.N. 18:34 03/31/17. Patient transported to radiology and CT by stretcher with tech. --18:34 Collette Cerna R.N. 19:01. Care transferred and report received. --19:01 Herminio Nick R.N. 19:04. Patient returned from CT by stretcher with tech. --19:04 Herminio Nick R.N. 19:12 03/31/2017 Site #1 started via IV in the right forearm with an 20g angiocath, with aseptic technique and good blood return; one attempt. Blood drawn: rainbow set. Labeled in the presence of the patient and sent to the lab. Saline lock flushed with 10 mL saline. --19:22 Herminio Nick R.N. 19:06. Cold pack applied to the left hip (left side of head /ear). --19:24 Herminio Nick R.N. 19:54 03/31/17. Rodríguez catheter. Reason for indwelling catheter: trauma. During procedure hand hygiene observed and sterile equipment and aseptic technique used. Return of yellow-colored clear urine; secured with velcro and strap. She tolerated procedure well. Patient ID band checked for patient name and birthdate. Catheterized urine collected with return of yellow-colored clear urine; sample sent to lab for urinalysis. Specimen labeled in the presence of the patient. --19:54 Meme Ding R.N. EKG time: (2022). EKG was ordered, performed by a tech and shown to the ED physician. --20:23 Kaley Pereyra, NIKA Tech1 20:50 03/31/2017 Dilaudid (HYDROmorphone HCl PF) IVP 0.5 mg given over 2 minute(s) via site #1. Allergies verified, confirmed 5 rights and sedative warning given to the patient and patient's family. IV patency established. IV site checked: no pain, redness, or swelling. IV flushed thoroughly pre- and post-medication administration. --20:53 Herminio Nick R.N. 20:59 Dr. Angela drained hematoma on left ear, assistedby self and Reji industrial waste treatment technician. --21:00 Herminio Nick R.N. 21:00 Dressing to left ear (pressure dressing) with Kerlix y Reji industrial waste treatment technician. --21:01 Herminio Nick R.N. Intake & Output 21:16. Urine, with return of 600 mL yellow-colored clear urine; attached to bedside drainage bag. --21:21 Herminio Nick R.N. DISPOSITION / DISCHARGE 20:36. Condition at departure: stable. Fall risk assessment completed. Risk factors identified include patient age greater than 65 years, history of fall and impairment of mobility. Fall interventions initiated. Patient placed on stretcher. Side rails up x2. Call light in reach of patient and family. Instructed not to get up without assistance. Transferred to [facility]. Transported via ambulance by transport team. Patient's personal items include: upper denture. She did not have glasses, contacts or a hearing aid. --20:36 Herminio Nick R.N. 20:32 03/31/17. BP: 128/83. HR: 86. RR: 17. O2 saturation: 98%. Pain level now: cannot qualify. --20:36 Herminio Nick R.N. 20:53 03/31/17. BP: 123/73. HR: 89. RR: 17. O2 saturation: 95% on room air. Pain level now: cannot qualify. --20:59 Herminio Nick R.N. Report was given in person. Report included patient's care, treatment, medications, reviewed medication reconcilliation, and condition (including any recent changes or anticipated changes). All questions were answered. Report was acknowledged and care was transferred. ([facility] ambulance). --21:07 Herminio Nick R.N. 21:28. Report was given via a phone call. Report included patient's care, treatment, medications, reviewed medication reconcilliation, and condition (including any recent changes or anticipated changes). All questions were answered. Report was acknowledged. (Mandi Esposito RN, [facility]). --21:28 Herminio Nick R.N. Departure time: 2108. --21:29 Herminio Nick R.N. Locked/Released at 03/31/2017 21:30 by Herminio Nick R.N.
--- NOTE | 2017-03-31 19:38 | ED ORDER SUMMARY ---
..... Patient: PHONG ADEN OrderSheet [facility] VisitID: [id number] [place] [address] 81y, F Registration Date/Time: 03/31/2017 ORDER SHEET Weight: 50.3 kg (stated) Allergies: No Known Drug Allergy GENERAL ORDERS: CT Head wo Cont Urgent (18:27 03/31/2017 Fab CURRIE) (18:36 PWeiler ER Tech1) Hip 2V Right w AP Pelvis Urgent (18:28 03/31/2017 Fab CURRIE) (18:36 PWeiler ER Tech1) (Cancelled: Wrong Order18:49 PWeiler ER Tech1) Hip 2V Left w AP Pelvis Urgent (18:50 03/31/2017 PWeiler ER Tech1 verbal order read back to Fab CURRIE) (Ack 18:51 PWeiler ER Tech1) (19:08 RFay) Chest 1V Urgent (18:51 03/31/2017 PWeiler ER Tech1 verbal order read back to Fab CURRIE) (Ack 18:51 PWeiler ER Tech1) (19:08 RFay) Type & Screen Urgent (19:37 03/31/2017 JQuivey R.N. verbal order read back to Fab CURRIE) (Ack 19:42 CHagerty ER Egg Tester) (20:00 JQuivey R.N.) Rodríguez Catheter (19:37 03/31/2017 JQuivey R.N. verbal order read back to Fab CURRIE) (19:53 MWinterer R.N.) EKG - ER Stat (20:10 03/31/2017 Fab CURRIE) (20:23 NHouse ER Tech1) MEDICATION ORDERS: IV FLUIDS: IV Saline Lock (19:22 03/31/2017 JQuivey R.N. per protocol) (19:22 JQuivey R.N.) Dilaudid IV 0.5 mg (HIGH ALERT MEDICATION, NOW) (20:50 03/31/2017 Fab CURRIE) (20:53 JQuivey R.N.) ORDER SHEET NOTES: [Electronically signed by Herminio Nick R.N. (21:30 03/31/2017)] [Electronically signed by Sofi Angela MD (21:43 03/31/2017)] [Electronically locked/signed by Herminio Nick R.N. (:30 03/31/2017)]
--- NOTE | 2017-03-31 19:38 | ED CLINICAL REPORT ---
Clinical Report - Physicians/Mid Levels [facility] [address] [place] [address] 03/31/2017 18:20 Patient: PHONG ADEN Time Seen: 1821. Arrived- By ambulance. Historian- EMS personnel. HISTORY OF PRESENT ILLNESS Chief Complaint: FALL. Location of injuries- head and right hip. The injury occurred just prior to arrival. Fell (According to EMS the patient's daughter reported that the patient tried to run away when the daughter wanted to get her dressed. The patient tripped and fell, injuring her right hip and the left side of her head. The patient has no other complaints at this time.). Occurred at home. The patient complains of moderate pain. The patient sustained a blow to the head. No neck pain, loss of consciousness or seizure. Not dazed. REVIEW OF SYSTEMS The patient complains of pain on weight bearing. No numbness, dizziness, loss of vision, hearing loss or chest pain. No difficulty breathing, weakness, headache, nausea or abdominal pain. No laceration, fever, vomiting or urinary problems. All systems otherwise negative, except as recorded above. PAST HISTORY Problems: Changed Mental Status. Tremors. Anemia. Renal Failure. Hypotension. CVA - Cerebrovascular Accident. Nephropathy. Additional Surgeries: Cabg x 2. Medications: Carbidopa-Levodopa Oral 25/100 mg, 3x a day. Clopidogrel Bisulfate Oral 75 mg, daily. Escitalopram Oxalate Oral 10 mg, daily. Allergies: No Known Drug Allergy. SOCIAL HISTORY Never smoker. No alcohol use or drug use. ADDITIONAL NOTES The nursing notes have been reviewed. PHYSICAL EXAM Vital Signs: 03/31/2017 18:33 BP: 154/75. HR: 75. RR: 18. O2 saturation: 96%. Pain level now: 8/10. Have been reviewed. Appearance: Alert. No acute distress. Head: Left parietal area: mild tenderness, moderate swelling and small ecchymosis of the upper posterior aspect of the left parietal area. No erythema, laceration, abrasion, puncture wound or foreign body. No deformity. Eyes: Pupils equal, round and reactive to light. EOM intact. ENT: No dental injury. Left ear: medium hematoma of the upper aspect of the left ear. Neck: Painless ROM. Non-tender. CVS: Heart sounds normal. Pulses normal. Respiratory: Breath sounds normal. Chest nontender. Abdomen: No visible injury. Soft and nontender. Back: No tenderness. ROM normal. Skin: Skin intact. Skin warm and dry. Normal skin color. Normal skin turgor. Extremities: Right hip. Limited ROM secondary to pain. No erythema, tenderness, swelling, laceration or abrasion. No ecchymosis, puncture wound, foreign body or deformity. The right leg is not shortened, externally rotated or internally rotated. (Extremity exam is otherwise negative.). Neuro: No alteration in mental status. LABS, X-RAYS, AND EKG EKG: EKG time: (2022). No acute process. No acute ischemia. Normal sinus rhythm. Rate: 90. Occasional ectopic beats. Premature ventricular contractions. Normal P waves. Normal TYRON. Normal QRS complex. Normal axis. Normal ST and T waves, QT and QTc. Prior EKG unavailable. The study has been interpreted contemporaneously by me. The study has been independently viewed by me. The EKG appears to be a good tracing. I agree with and confirm the computer reading of the EKG. Chest X-ray: No acute disease. Normal lung markings present. Normal heart size. Mediastinum normal. Great vessels normal. Soft tissues normal. No infiltrate. No fracture. No bony lesion present. Views: AP (portable). Technique: good. The X-rays were independently viewed by me and interpreted contemporaneously by me. Prior films were not available for comparison. Lt Hip X-ray: Displaced femoral neck fracture of the left hip. Soft tissues normal. Joint spaces normal. No air in the soft tissue or foreign body. Views: 2 view hip series. Technique: good. The X-rays were independently viewed by me, interpreted by the radiologist and contemporaneously by me and discussed with the radiologist. Prior films were not available for comparison. CT Head: No acute changes. No bony abnormalities, no hemorrhage, no intracranial mass, no midline shift and no hydrocephalus. No atrophy. Head CT performed without contrast. The study was independently viewed by me, interpreted by the radiologist and contemporaneously by me and discussed with the radiologist. Prior studies were not available for comparison. Pulse Oximetry: 03/31/2017 18:33 O2 saturation: 96%. (FIO2 - room air). Interpretation: normal. PROGRESS AND PROCEDURES Course of Care: the patient was evaluated by me and worked up for her head and hip injuries. Her head CT was unremarkable; however her left hip and pelvis x-ray series did show a subcapital fracture of the left femur with displacement. Labs were not repeated due to the fact that the patient was just seen here a few hours before. I did advise the patient's daughter that the patient did have a hip fracture and would need operative management. Unfortunately, as we do not have an orthopedist salesperson new cars here tonight this would involve transfer to another local hospital. I did speak with Dr. Barnhart of orthopedics at [place], and he did agree to see the patient and have her transferred. However he did request that the hospitalist at his facility primarily admit the patient, and so I did speak with Dr. Nevarez and arrange for this. Prior to the patient's discharge, I did drain her left ear hematoma. Patient was dressed with a pressure dressing around her left ear. Discussed case with health care provider ([facility]/ortho/Sukhdeep). Reviewed test results and need for additional work-up. Agreed upon treatment plan. Health care provider will see patient in hospital. Refers case to other health care provider. Discussed case with health care provider ([facility]/hospitalist/[place]: accepts in transfer). Reviewed test results. Agreed upon treatment plan. Health care provider will see patient in hospital. Family counseled in person regarding the patient's stable but serious condition, test results, diagnosis and need for transfer. Concerns were addressed. Old medical records reviewed. Disposition: Benefits, risks and alternatives to transfer explained to family. Transferred to [facility]. Condition: stable. CLINICAL IMPRESSION Closed displaced oblique fracture of the subcapital neck of the left femur. No angulated fracture of the femur. Single hematoma to the left ear. (with I&D). Fall on same level by tripping. (Electronically signed by Sofi Angela MD 03/31/2017 21:43)
--- NOTE | 2017-03-31 19:38 | ED ORDER SUMMARY ---
..... Patient: PHONG ADEN OrderSheet [facility] VisitID: [id number] [place] [address] 81y, F Registration Date/Time: 03/31/2017 ORDER SHEET Weight: 50.3 kg (stated) Allergies: No Known Drug Allergy GENERAL ORDERS: CT Head wo Cont Urgent (18:27 03/31/2017 Fab CURRIE) (18:36 PWeiler ER Tech1) Hip 2V Right w AP Pelvis Urgent (18:28 03/31/2017 Fab CURRIE) (18:36 PWeiler ER Tech1) (Cancelled: Wrong Order18:49 PWeiler ER Tech1) Hip 2V Left w AP Pelvis Urgent (18:50 03/31/2017 PWeiler ER Tech1 verbal order read back to Fab CURRIE) (Ack 18:51 PWeiler ER Tech1) (19:08 RFay) Chest 1V Urgent (18:51 03/31/2017 PWeiler ER Tech1 verbal order read back to Fab CURRIE) (Ack 18:51 PWeiler ER Tech1) (19:08 RFay) Type & Screen Urgent (19:37 03/31/2017 JQuivey R.N. verbal order read back to Fab CURRIE) (Ack 19:42 CHagerty ER Resort Manager) (20:00 JQuivey R.N.) Rodríguez Catheter (19:37 03/31/2017 JQuivey R.N. verbal order read back to Fab CURRIE) (19:53 MWinterer R.N.) EKG - ER Stat (20:10 03/31/2017 Fab CURRIE) (20:23 NHouse ER Tech1) MEDICATION ORDERS: IV FLUIDS: IV Saline Lock (19:22 03/31/2017 JQuivey R.N. per protocol) (19:22 JQuivey R.N.) Dilaudid IV 0.5 mg (HIGH ALERT MEDICATION, NOW) (20:50 03/31/2017 Fab CURRIE) (20:53 JQuivey R.N.) ORDER SHEET NOTES: [Electronically signed by Herminio Nick R.N. (21:30 03/31/2017)] [Electronically signed by Sofi Angela MD (21:43 03/31/2017)] [Electronically locked/signed by Herminio Nick R.N. (:30 03/31/2017)]
--- NOTE | 2017-03-31 19:38 | ED NURSING NOTES ---
Clinical Report - Nurses [place] [address] [place] [address] 03/31/2017 18:20 Patient: PHONG ADEN TRIAGE Triage time 18:23. Chief Complaint: FALL while walking (tripped while trying to run). Alert. LAUREN COMA SCORE: [place] Coma Scale: 14- eyes open spontaneously (4); best verbal response- disoriented (4); best motor response- obeys commands (6). --18:26 Collette Cerna R.N. ( Weight: 50.3 kg stated. Height/Length: 66 inches Per Patient. BMI: 17.9.). --18:27 Collette Cerna R.N. Acuity: LEVEL 3. --18:33 Collette Cerna R.N. 18:33 03/31/17. BP: 154/75. HR: 75. RR: 18. O2 saturation: 96%. Pain level now: 8/10. --18:33 Collette Cerna R.N. Weight: 50.3 kg stated. Height/Length: 66 inches Per Patient. BMI: 17.9. --21:29 Herminio Nick R.N. Medications Carbidopa-Levodopa Oral 25/100 mg, 3x a day. Clopidogrel Bisulfate Oral 75 mg, daily. Escitalopram Oxalate Oral 10 mg, daily. --18:24 Collette Cerna R.N. Bactrim DS Oral (Tablet 800-160 mg) 1 tablet, 2x a day. --20:55 Herminio Nick R.N. Valium Oral (Tablet 5 mg) 1 tablet, at bedtime as needed. --20:56 Herminio Nick R.N. Allergies No Known Drug Allergy. --18:24 Collette Cerna R.N. History Arrived by EMS. Historian: EMS and family. Location of injuries: left hip. This occurred just prior to arrival and today. --18:26 Collette Cerna R.N. PROBLEMS: Changed Mental Status. Tremors. UTI - Urinary Tract Infection. Anemia. Renal Failure. Hypotension. Diarrhea. CVA - Cerebrovascular Accident. Nephropathy. --18:25 Collette Cerna R.N. ADDITIONAL SURGERIES: Cabg x 2. --18:25 Collette Cerna R.N. Interventions ID band on patient. To room. --18:26 Collette Cerna R.N. ID band on patient. To room. --18:33 Collette Cerna R.N. PHYSICAL ASSESSMENT SKIN: Ecchymosis (left ear and left head). --18:26 Collette Cerna R.N. GENERAL / NEURO / PSYCH: Alert. The patient is disoriented. --18:26 Collette Cerna R.N. NURSING PROGRESS NOTES 18:03/31/17. Reassurance given. Patient identifiers checked. Call light placed in reach. Bed placed in lowest position. Patient ready for evaluation- chart flagged. --18:26 Collette Cerna R.N. 18:34 03/31/17. Patient transported to radiology and CT by stretcher with tech. --18:34 Collette Cerna R.N. 19:01. Care transferred and report received. --19:01 Herminio Nick R.N. 19:04. Patient returned from CT by stretcher with tech. --19:04 Herminio Nick R.N. 19:12 03/31/2017 Site #1 started via IV in the right forearm with an 20g angiocath, with aseptic technique and good blood return; one attempt. Blood drawn: rainbow set. Labeled in the presence of the patient and sent to the lab. Saline lock flushed with 10 mL saline. --19:22 Herminio Nick R.N. 19:06. Cold pack applied to the left hip (left side of head /ear). --19:24 Herminio Nick R.N. 19:54 03/31/17. Rodríguez catheter. Reason for indwelling catheter: trauma. During procedure hand hygiene observed and sterile equipment and aseptic technique used. Return of yellow-colored clear urine; secured with velcro and strap. She tolerated procedure well. Patient ID band checked for patient name and birthdate. Catheterized urine collected with return of yellow-colored clear urine; sample sent to lab for urinalysis. Specimen labeled in the presence of the patient. --19:54 Meme Ding R.N. EKG time: (2022). EKG was ordered, performed by a tech and shown to the ED physician. --20:23 Kaley Pereyra, NIKA Tech1 20:50 03/31/2017 Dilaudid (HYDROmorphone HCl PF) IVP 0.5 mg given over 2 minute(s) via site #1. Allergies verified, confirmed 5 rights and sedative warning given to the patient and patient's family. IV patency established. IV site checked: no pain, redness, or swelling. IV flushed thoroughly pre- and post-medication administration. --20:53 Herminio Nick R.N. 20:59 Dr. Angela drained hematoma on left ear, assistedby self and Reji orthopaedic technologist. --21:00 Herminio Nick R.N. 21:00 Dressing to left ear (pressure dressing) with Kerlix y Reji orthopaedic technologist. --21:01 Herminio Nick R.N. Intake & Output 21:16. Urine, with return of 600 mL yellow-colored clear urine; attached to bedside drainage bag. --21:21 Herminio Nick R.N. DISPOSITION / DISCHARGE 20:36. Condition at departure: stable. Fall risk assessment completed. Risk factors identified include patient age greater than 65 years, history of fall and impairment of mobility. Fall interventions initiated. Patient placed on stretcher. Side rails up x2. Call light in reach of patient and family. Instructed not to get up without assistance. Transferred to [facility]. Transported via ambulance by transport team. Patient's personal items include: upper denture. She did not have glasses, contacts or a hearing aid. --20:36 Herminio Nick R.N. 20:32 03/31/17. BP: 128/83. HR: 86. RR: 17. O2 saturation: 98%. Pain level now: cannot qualify. --20:36 Herminio Nick R.N. 20:53 03/31/17. BP: 123/73. HR: 89. RR: 17. O2 saturation: 95% on room air. Pain level now: cannot qualify. --20:59 Herminio Nick R.N. Report was given in person. Report included patient's care, treatment, medications, reviewed medication reconcilliation, and condition (including any recent changes or anticipated changes). All questions were answered. Report was acknowledged and care was transferred. ([facility] ambulance). --21:07 Herminio Nick R.N. 21:28. Report was given via a phone call. Report included patient's care, treatment, medications, reviewed medication reconcilliation, and condition (including any recent changes or anticipated changes). All questions were answered. Report was acknowledged. (Mandi Esposito RN, [facility]). --21:28 Herminio Nick R.N. Departure time: 2108. --21:29 Herminio Nick R.N. Locked/Released at 03/31/2017 21:30 by Herminio Nick R.N.
--- NOTE | 2017-03-31 19:41 | DIAGNOSTIC IMAGING REPORT ---
PROCEDURE: XR HIP 2VW W W/O AP PELVIS-LT INDICATION: TRAUMA/INJURY TECHNIQUE: AP view of the pelvis and hips with lateral view of the left hip. COMPARISON: None. FINDINGS: LEFT HIP: Subcapital fracture with varus angulation. PELVIS: Osteopenia. No suspicious osseous lesions. Soft tissues are unremarkable. IMPRESSION: 1. Left hip subcapital fracture.
--- NOTE | 2017-03-31 19:42 | DIAGNOSTIC IMAGING REPORT ---
PROCEDURE: XR CHEST 1 VIEW INDICATION: TRAUMA TECHNIQUE: Portable AP view 06:55 p.m. COMPARISON: Chest x-ray 10/14/2016 FINDINGS: Lungs are clear. Median sternotomy and CABG. Normal heart size. Mild pulmonary vascular congestion. Thorax is normal. IMPRESSION: 1. CABG with mild pulmonary vascular congestion
--- NOTE | 2017-03-31 21:44 | ED MED RECONCILIATION SUMMARY ---
Patient: PHONG ADEN Medication Reconciliation Report [facility] VisitID: [id number] [address] [place] [address] 81y, F Registration Date/Time: 03/31/2017 Weight: 50.3 kg Height/Length: 66 in. BMI: 17.9 ALLERGIES: No Known Drug Allergy The patient's Home Medications are listed below: THE FOLLOWING MEDICATIONS NEED TO BE RECONCILED: Bactrim DS Oral (800-160 mg) 1 tablet, 2x a day Carbidopa-Levodopa Oral 25/100 mg, 3x a day Clopidogrel Bisulfate Oral 75 mg, daily Escitalopram Oxalate Oral 10 mg, daily Valium Oral (5 mg) 1 tablet, at bedtime The source(s) of the original Home Medication information: Not obtained. The following Medications were given to the patient in the Emergency Department: Dilaudid [IVP] IVP 0.5 mg, administered: 03/31/2017 8:50:00 PM The following Medications were prescribed to the patient: None.
--- NOTE | 2017-03-31 21:44 | ED MAR SUMMARY ---
..... Medication Administration Record [facility] [address] [place] [address] Patient: PHONG ADEN Visit ID: [id number] 81y, F Weight: 50.3 kg Height/Length: 66 in BMI: 17.9 ALLERGIES: No Known Drug Allergy Given 20:50 03/31/2017 Herminio Nick RAbdullahiNAbdullahi Medication Administered: DILAUDID [IVP] (HYDROMORPHONE HCL PF), Dose: 0.5 mg IVP over 2 minute(s), Site: #1 right forearm. Medication Ordered: Dilaudid IV 0.5 mg (HIGH ALERT MEDICATION, NOW).
--- NOTE | 2017-03-31 21:44 | ED MAR SUMMARY ---
..... Medication Administration Record [facility] [address] [place] [address] Patient: PHONG ADEN Visit ID: [id number] 81y, F Weight: 50.3 kg Height/Length: 66 in BMI: 17.9 ALLERGIES: No Known Drug Allergy Given 20:50 03/31/2017 Herminio Nick RAbdullahiNAbdullahi Medication Administered: DILAUDID [IVP] (HYDROMORPHONE HCL PF), Dose: 0.5 mg IVP over 2 minute(s), Site: #1 right forearm. Medication Ordered: Dilaudid IV 0.5 mg (HIGH ALERT MEDICATION, NOW).
--- NOTE | 2017-03-31 21:44 | ED DISCHARGE INSTRUCTIONS ---
Patient: PHONG ADEN General Instructions [facility] VisitID: [id number] [address] [place] [address] 81y, F Registration Date/Time: 03/31/2017 Closed displaced oblique fracture of the subcapital neck of the left femur. No angulated fracture of the femur. Single hematoma to the left ear. (with I&D). Fall on same level by tripping. (Electronically signed by Sofi Angela MD 03/31/2017 21:43)
--- NOTE | 2017-03-31 21:44 | ED MED RECONCILIATION SUMMARY ---
Patient: PHONG ADEN Medication Reconciliation Report [facility] VisitID: [id number] [address] [place] [address] 81y, F Registration Date/Time: 03/31/2017 Weight: 50.3 kg Height/Length: 66 in. BMI: 17.9 ALLERGIES: No Known Drug Allergy The patient's Home Medications are listed below: THE FOLLOWING MEDICATIONS NEED TO BE RECONCILED: Bactrim DS Oral (800-160 mg) 1 tablet, 2x a day Carbidopa-Levodopa Oral 25/100 mg, 3x a day Clopidogrel Bisulfate Oral 75 mg, daily Escitalopram Oxalate Oral 10 mg, daily Valium Oral (5 mg) 1 tablet, at bedtime The source(s) of the original Home Medication information: Not obtained. The following Medications were given to the patient in the Emergency Department: Dilaudid [IVP] IVP 0.5 mg, administered: 03/31/2017 8:50:00 PM The following Medications were prescribed to the patient: None.
--- NOTE | 2017-03-31 21:44 | ED DISCHARGE INSTRUCTIONS ---
Patient: PHONG ADEN General Instructions [facility] VisitID: [id number] [address] [place] [address] 81y, F Registration Date/Time: 03/31/2017 Closed displaced oblique fracture of the subcapital neck of the left femur. No angulated fracture of the femur. Single hematoma to the left ear. (with I&D). Fall on same level by tripping. (Electronically signed by Sofi Angela MD 03/31/2017 21:43)
== END 2017-03-31 21:09 | disposition short-term general hospital (02) ==
LOC: ED SRH 18:19
DX: S72.012A Unspecified intracapsular fracture of left femur, initial encounter for closed fracture (principal); S00.432A Contusion of left ear, initial encounter; W01.10XA Fall on same level from slipping, tripping and stumbling with subsequent striking against unspecified object, initial encounter; Y93.01 Activity, walking, marching and hiking; Y92.019 Unspecified place in single-family (private) house as the place of occurrence of the external cause; Y99.9 Unspecified external cause status; Z79.899 Other long term (current) drug therapy